=== PATIENT | female | born 1985 | race Caucasian/White ===

== ENCOUNTER 2016-09-14 09:43 | Emergency (ER) | payer OTHER ==
[2016-09-14] MEDS ORDERED: Ibuprofen TAB* 600 MG PO ONE (09:48)
[2016-09-14 10:43] VITALS: BP 104/69
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
== END 2016-09-14 10:49 | disposition home or self-care (01) ==
LOC: ED 09:43
DX: S13.9XXA Sprain of joints and ligaments of unspecified parts of neck, initial encounter (principal); V47.5XXA Car driver injured in collision with fixed or stationary object in traffic accident, initial encounter; Z88.2 Allergy status to sulfonamides; Y92.411 Interstate highway as the place of occurrence of the external cause
CPT/HCPCS: 72050; 99282; A9270-GY

== ENCOUNTER 2018-02-21 02:22 | Observation (INO) | payer OTHER ==
[2018-02-21] MEDS ORDERED: Morphine VIAL* 4 MG/ML VIAL (1 ml vial) IV ONE (02:47)
[2018-02-21] MEDS ORDERED: Metoclopramide IV* 5 MG/ML 2 ML VIAL IV SLOW PU ONE (02:47)
[2018-02-21] MEDS ORDERED: Acetaminophen TAB* 325 MG PO ONE (02:47)
[2018-02-21] MEDS ORDERED: NS 0.9% 1000 ML* 2,000 ML IV ONE (02:48)
[2018-02-21] MEDS ORDERED: Gentamicin IVPREMIX 100 MG/100 ML BAG IV ONE (02:59)
[2018-02-21] MEDS ORDERED: Clindamycin 900 MG IVPREMIX(* 900 MG/50 ML SDV IV ONE (02:59)
[2018-02-21] MEDS ORDERED: Morphine VIAL* 10 MG/ML 1 ML VIAL ONE (03:25)
[2018-02-21 03:34] LABS: ABS Basophils 0 10^3/ul (0-0.2); ABS Eosinophils 0 10^3/ul (0-0.6); ABS Lymphocytes 0.5 10^3/ul (1.0-4.8); ABS Monocytes 0.8 10^3/ul (0-0.8); ABS Nucleated RBC 0 10^3/ul; Eosinophil % 0.2 % (0-6); Hematocrit 27 % (35-47); Lymphocyte % 3.2 % (25-47); Mean Corpuscular HGB Conc 34 g/dl (31-36); Mean Corpuscular Hemoglobin 27 pg (27-31); Mean Corpuscular Volume 81 fL (80-97); Mean Platelet Volume 6.6 um3 (7.4-10.4); Nucleated Red Blood Cells % 0; Platelet Count 299 10^3/ul (150-450); Red Blood Count 3.33 10^6/ul (4.00-5.40); Red Cell Distribution Width 15 % (10.5-15); White Blood Count 16.3 10^3/ul (3.5-10.8)
--- NOTE | 2018-02-21 03:38 | ED ---
Breast Complaint - HPI Summary HPI Summary: This is rosangela Edwards documenting for attending Dr. Kody Martinez MD. A 32 y/o female GRUPO presents to ED c/o right and left breast pain. According to the patient she attempted to pump milk at 1830 and 2029, however, she experiences severe pain. She noted that the right side hurts the worst as she tried pumping since 1014. She noted that she was fine for the first day or so pumping but since it has been painful (fine up to today). She stated that she uses a pump and puts it in the bottle, the does not feed directly from the breast. She gave at home on February 08 2018 and was transferred here for stitches. She denies any issues with the stitches except for itchiness. Additionally, she experiences a small amount of bloody discharge that had a foul smell on , but that seems to have changed since. Pt denies any cough or urinary symptoms. No OB physician. PCP is present in room. Patient has had two births. PMHx of depression for 1st child. Pt is in obvious distress in the ED room. - History of Current Complaint Hx Obtained From: Patient Breast Chief Complaint: Pain, Breast, Left, Right Onset/Duration: Started Days Ago, Still Present, Worse Since - Onset Timing: Constant Breast Pain Radiates To: Left, Right Breast Pain Aggravating Factors: Other: - Pumping Breast Pain Alleviating Factors: Nothing - Allergy/Home Medications Allergies/Adverse Reactions: Allergies Allergy/AdvReac Type Severity Reaction Status Date / Time sulfamethoxazole Allergy Unknown Unknown Verified 02/09/18 15:12 [From Bactrim] Reaction Details trimethoprim [From Bactrim] Allergy Unknown Unknown Verified 02/09/18 15:12 Reaction Details PMH/Surg Hx/FS Hx/Imm Hx Endocrine/Hematology History: Denies: Hx Diabetes Cardiovascular History: Denies: Hx Hypertension Infectious Disease History: No Infectious Disease History: Denies: Traveled Outside the [place] in Last 30 Days - Family History Known Family History: Positive: Cardiac Disease - unsure, Hypertension Negative: Diabetes - Social History Alcohol Use: None Hx Substance Use: No Substance Use Type: Reports: None Hx Tobacco Use: No Smoking Status (MU): Never Smoked Tobacco Review of Systems Negative: Fever Positive: no symptoms reported Positive: Other - POSITIVE: Breast pain Positive: Other - POSITIVE: Itchiness of sutures. All Other Systems Reviewed And Are Negative: Yes Physical Exam - Summary Physical Exam Summary: VITAL SIGNS: Reviewed. GENERAL: Patient is a well-developed and nourished female who is lying comfortable in the stretcher. Patient is not in any acute respiratory distress. HEAD AND FACE: No signs of trauma. No ecchymosis, hematomas or skull depressions. No sinus tenderness. EYES: PERRLA, EOMI x 2, No injected conjunctiva, no nystagmus. EARS: Hearing grossly intact. Ear canals and tympanic membranes are within normal limits. MOUTH: Oropharynx within normal limits. NECK: Supple, trachea is midline, no adenopathy, no JVD, no carotid bruit, no c- spine tenderness, neck with full ROM. CHEST: Symmetric, no tenderness at palpation. Bilateral breast encourages without redness. Both breasts are symmetrical. Tenderness more on the right then left. LUNGS: Clear to auscultation bilaterally. No wheezing or crackles. CVS: Regular rate and rhythm, S1 and S2 present, no murmurs or gallops appreciated. ABDOMEN: Soft, tenderness of lower abdomen. No signs of distention. No rebound no guarding, and no masses palpated. Bowel sounds are normal. EXTREMITIES: FROM in all major joints, no edema, no cyanosis or clubbing. NEURO: Alert and oriented x 3. No acute neurological deficits. Speech is normal and follows commands. SKIN: Dry and warm PELVIC EXAM: Foual smelling vaginal discharge where sutures are in place. Triage Information Reviewed: Yes Vital Signs On Initial Exam: Initial Vitals Temp Pulse Resp BP Pulse Ox 101.2 F 101 18 99/67 97 02/21/18 02:35 02/21/18 02:35 02/21/18 02:35 02/21/18 02:35 02/21/18 02:35 Vital Signs Reviewed: Yes Diagnostics - Vital Signs Vital Signs Temp Pulse Resp BP Pulse Ox 02/21/18 03:32 18 02/21/18 02:35 101.2 F 101 18 99/67 97 - Laboratory Lab Results: Lab Results 02/21/18 Range/Units 03:10 WBC 16.3 H (3.5-10.8) 10^3/ul RBC 3.33 L (4.00-5.40) 10^6/ul Hgb 9.0 L (12.0-16.0) g/dl Hct 27 L (35-47) % MCV 81 (80-97) fL MCH 27 (27-31) pg MCHC 34 (31-36) g/dl RDW 15 (10.5-15) % Plt Count 299 (150-450) 10^3/ul MPV 6.6 L (7.4-10.4) um3 Neut % (Auto) 91.5 H (38-83) % Lymph % (Auto) 3.2 L (25-47) % [place] % (Auto) 5.0 (0-7) % Eos % (Auto) 0.2 (0-6) % Baso % (Auto) 0.1 (0-2) % Absolute Neuts (auto) 15.0 H (1.5-7.7) 10^3/ul Absolute Lymphs (auto) 0.5 L (1.0-4.8) 10^3/ul Absolute Monos (auto) 0.8 (0-0.8) 10^3/ul Absolute Eos (auto) 0 (0-0.6) 10^3/ul Absolute Basos (auto) 0 (0-0.2) 10^3/ul Absolute Nucleated RBC 0 10^3/ul Nucleated RBC % 0 Result Diagrams: 02/21/18 03:10 02/21/18 03:10 Lab Statement: Any lab studies that have been ordered have been reviewed, and results considered in the medical decision making process. - Radiology CXR Radiology Interpretation Completed By: ED Physician - Negative. Breast Pain Course/Dx - Course Course Of Treatment: A 32 y/o female GRU[place] presents to ED c/o right and left breast pain. According to the patient she attempted to pump milk at 1830 and 2030, however, she experiences severe pain. She noted that the right side hurts the worst as she tried pumping since 1015. A CXR was negative. In the ED course , the patient recieved Tylenol. Cleocin, Gentamicin, Reglan, Morphine and IV fluids. Patient care was discussed with Dr. Garza who accepts patient for admission. Pt will be admitted with a diagnosis of fever and endometritis. Pt is agreeable with this plan. - Diagnoses Provider Diagnoses: Endometritis, fever - Provider Notifications Discussed Care Of Patient With: Lissette Garza Time Discussed With Above Provider: 03:13 Instructed by Provider To: Other - Accepts patient for admission. Discharge - Sign-Out/Discharge Documenting (check all that apply): Patient Departure - ADMIT - Discharge Plan Condition: Stable Disposition: ADMITTED TO [facility] Referrals: No Primary Care Phys,NOPCP [Primary Care Provider] -
[2018-02-21 03:49] LABS: EGFR Non-African American 99.6 (>60)
[2018-02-21] MEDS ORDERED: Acetaminophen TAB* 325 MG PO PRN (04:58)
[2018-02-21] MEDS ORDERED: Witch Hazel PAD* JAR TOPICAL PRN (04:58)
[2018-02-21] MEDS ORDERED: Ibuprofen TAB* 600 MG PO PRN (04:58)
--- NOTE | 2018-02-21 06:18 | HP ---
H&P (Free Text) History and Physical: CC: breast pain HPI: Pt is 13 days pp and arrived to the ED with her senior software qa engineer, Etta Olivarez. She c/ o increasing b/l breast pain today. She has been pumping and feeding the baby breast milk because she has very sensitive nipples and can't tolerate nursing. She had the same issue with her first child. She had a temp of 102 before leaving home today and feels exhausted. She has been pumping with a double electric breast pump every 2.5-3hrs and pumps 1-2oz at a time. She is trying to massage while pumping today but it is difficult with the double pump. She was going to get in the shower but didn't feel well enough. She has used warm heat to the breasts. She has a small amount of lochia, min bright red today. Denies abd/pelvic pain or increasing bleeding or recent foul smelling discharge. Her delivery was at her home with the senior software qa engineer on February 08. She came to [facility] afterwards for a repair and has had an uncomplicated recovery. ROS: she reports she is feeling down and not connecting with the baby very well -her is doing almost all the baby care. She does not even want to hold her. She says this happened after her first delivery and she started zoloft but got headaches so she switched to something else but can't remember what it was. She can call the pharmacy to find out. PMH: H/o pp depression s/p first delivery. PSH: neg Soc Hx: no tobacco, alcohol or illicit drug use Vital Signs Temp Pulse Resp BP Pulse Ox 02/21/18 03:32 18 02/21/18 02:35 101.2 F 101 18 99/67 97 Lab Results 02/21/18 Range/Units 03:10 WBC 16.3 H (3.5-10.8) 10^3/ul RBC 3.33 L (4.00-5.40) 10^6/ul Hgb 9.0 L (12.0-16.0) g/dl Hct 27 L (35-47) % MCV 81 (80-97) fL MCH 27 (27-31) pg MCHC 34 (31-36) g/dl RDW 15 (10.5-15) % Plt Count 299 (150-450) 10^3/ul MPV 6.6 L (7.4-10.4) um3 Neut % (Auto) 91.5 H (38-83) % Lymph % (Auto) 3.2 L (25-47) % [place] % (Auto) 5.0 (0-7) % Eos % (Auto) 0.2 (0-6) % Baso % (Auto) 0.1 (0-2) % Absolute Neuts (auto) 15.0 H (1.5-7.7) 10^3/ul Absolute Lymphs (auto) 0.5 L (1.0-4.8) 10^3/ul Absolute Monos (auto) 0.8 (0-0.8) 10^3/ul Absolute Eos (auto) 0 (0-0.6) 10^3/ul Absolute Basos (auto) 0 (0-0.2) 10^3/ul Absolute Nucleated RBC 0 10^3/ul Nucleated RBC % 0 PE Gen: NAD, lying in stretcher, appears tired Breasts: B/L breasts engorged (just pumped 30min prior), generalized tenderness , right breast with slight erythema in lower outer quadrant. Abd: soft, NT, fundus nontender, appropriately involuted. Assessment: Mastitis due to difficulty pumping, febrile despite ibuprofen, depression Plan: Admit for observation support to ensure appropriate phalange size and pump usage Warm shower and breast massage to help relieve clogged ducts Motrin/Tylenol prn fever Dicloxicillin QID Will evaluate pain during stay and determine best options for managing nipple pain at home Pt will call pharmacy to find out which antidepressant worked for her previously and we will plan to restart that.
[2018-02-21] MEDS: Dicloxacillin CAP* 250 MG PO SCH ×3 (09:10→18:01)
--- NOTE | 2018-02-21 11:48 | RAD ---
Indication: fever. Comparison: No relevant prior exams available on the [facility] PACS for comparison. Technique: Upright AP 0305 hours Report: Clear lungs and pleural spaces. Negative for pneumothorax. The heart, pulmonary vasculature, and mediastinal contours are unremarkable. Negative for free air beneath the diaphragm. Unremarkable osseous structures and soft tissue contours. IMPRESSION: #. No evidence for acute intrathoracic disease. R0
[2018-02-21 16:14] VITALS: BP 105/59
--- NOTE | 2018-02-21 17:18 | DCNOTE ---
Discharge summary Admitting dx: Mastitis Discharge Dx: Mastitis Hospital course: Pt admitted for assistance, antibiotics and management of mastitis with temperature and slightly low BPs. With warm showers and massage and regular pumping, her breast pain has improved and they are not as engorged. She feels comfortable going home now. Pt also started on antidepressent for depression. Plan: discharge to home. Continue dicloxicillin, ibuprofen and paroxetine. Call Wire Winding [employer] Operator associates with questions or concerns - discharge instructions given and reviewed with pt.
--- NOTE | 2018-02-21 17:19 | DCNOTE ---
S: With warm showers and massage and regular pumping, her breast pain has improved and they are not as engorged. She feels comfortable going home now. Exam: right breast less tender. both breast less engorged. AVSS Assessment: Mastitis with issues. depression. Plan: discharge to home. Continue dicloxicillin, ibuprofen and paroxetine. Call Footwear Sales Associate associates with questions or concerns - discharge instructions given and reviewed with pt.
[2018-02-21] MEDS ORDERED: PARoxetine HCL TAB* 20 MG PO SCH (18:00)
== END 2018-02-21 21:00 | disposition home or self-care (01) ==
LOC: ED 02:22 → MCHPEDS 05:05
PROVIDERS: ADMIT Obstetrics & Gynecology; ATTEND Obstetrics & Gynecology
DX: N61.0 Mastitis without abscess (principal); F53 Mental and behavioral disorders associated with the puerperium, not elsewhere classified; N71.9 Inflammatory disease of uterus, unspecified; O86.4 Pyrexia of unknown origin following delivery
CPT/HCPCS: 36415; 71045; 80053; 83605; 85025; 86140; 87040; 96374; 96375; 99284; A9270-GY; G0378; J1580; J2270; J2765